=== PATIENT | female | born 1980 | race Caucasian/White ===

== ENCOUNTER 2024-11-24 11:50 | Inpatient (IN) | payer BC, SELFPAY ==
[2024-11-19 08:45] VITALS: BMI 27.9
[2024-11-19 09:10] LABS: % Basophils 0.4 % (0-2); % Eosinophils 0.7 % (0-6); % Immature Granulocytes 0.1 % (0-0.5); % Lymphocytes 22.1 % (20.5-51.1); % Monocytes 3.5 % (1.7-9.3); % Neutrophils 73.2 % (42.2-75.2); Absolute Eosinophils 0.1 10^3/uL (0-0.7); Absolute Lymphocytes 1.6 10^3/uL (1.2-3.4); Absolute Monocytes 0.3 10^3/uL (0.1-0.6); Absolute Neutrophils 5.4 10^3/uL (1.4-6.5); Hemoglobin 15.2 g/dL (12.0-16.0); Mean Corp Hgb Conc. 34.5 g/dL (33.0-37.0); Mean Corpuscular Hgb 31.1 pg (27.0-31.0); Mean Platelet Volume 8.9 fL (7.4-10.4); Nucleated Red Blood Cells % 0 %; Platelet Count 207 10^3/uL (130-400); Red Blood Cell Count 4.89 10^6/uL (4.20-5.40); Red Cell Dist. Width 12.4 % (11.5-14.5); White Blood Cell Count 7.4 10^3/uL (4.8-10.8)
[2024-11-19 09:16] LABS: INR 0.95; PT 13.2 Sec (11.4-14.6)
[2024-11-19 09:17] LABS: APTT 26.4 Sec (23.4-35.0)
[2024-11-19 09:44] LABS: Blood Urea Nitrogen 14 mg/dl (7-17); Calcium 9.9 mg/dl (8.4-10.2); Carbon Dioxide 26 mmol/L (22-30); Chloride 105 mmol/L (98-107); Estimated Creatinine Clearance 93 ml/min; Glucose 83 mg/dl (70-99); Potassium 4.1 mmol/L (3.5-5.1); Sodium 140 mmol/L (135-145); eGFR > 60.00
[2024-11-24] VITALS (29 sets, daily range): BP systolic 20–132; BP diastolic 53–81; BMI 29.9
[2024-11-24] MEDS: PERIDEX 0.12% ORAL RINSE 15 ML PO (12:30)
[2024-11-24] MEDS: BACTROBAN NASAL 1 GRAM NASAL (12:30)
[2024-11-24] MEDS: NSS 500 IV (12:31)
[2024-11-24 13:11] LABS: HCG, Urine Qualitative Screen Negative
[2024-11-24] MEDS: TRANSDERM-SCOP 1 PATCH TRANSDERM (13:41)
--- NOTE | 2024-11-24 14:23 | W.SUR.PREOP ---
Pre-Operative Surgical Note
-
I have examined this patient prior to the performance of the scheduled procedure.
The patient's condition is unchanged from the time of the current History and
Physical and the patient is able to undergo the scheduled procedure.
--- NOTE | 2024-11-24 14:38 | HP.FOC2 ---
Focused History & Physical
Chief Complaint
HPI:
Chief Complaint: Right upper extremity pain/numbness with concern for right thoracic outlet syndrome
HPI / Indication for Planned Procedure: 44-year-old female presents today for planned right first rib resection with Dr. Pedraza. Patient states her symptoms are stable and unchanged. She experiences right 4th and 5th digit numbness that she
believes is positional. She is experienced these symptoms for about 25 years. She presents at her baseline health today with no recent illnesses or traumas.
Relevant Past Medical History: Other (Platelet disorder during only, cervical rib)
Relevant Social History: Negative
Relevant Family History: Negative
Relevant Past Surgical History: Negative
Review of Systems
Review of Pertinent Systems: All Systems Negative
Medication
See Medication form for detailed medications: Yes
Medication List (including Herbals & OTC):
celecoxib 200 mg capsule 200 mg PO HS 11/17/24
norethindrone 1 mg-ethinyl estradiol 10 mcg (24)-iron 10 mcg(2) tablet (Lo Loestrin Fe) 1 tab PO HS 11/17/24
multivitamin with minerals-folic acid 200 mcg chewable tablet (Multivitamin Gummies) 2 tab PO DAILY 11/24/24
Medications Reviewed: Yes
Allergies and Reactions
Patient has Allergies: Yes
Noted Allergies and Reactions:
Allergy/AdvReac Type Severity Reaction Status Date / Time
pollen extracts Allergy seasonal Verified 11/24/24 12:22
allergies
Pertinent Physical Exam
All Other Systems: Negative
Head/Neck: Normal
Lungs: Normal
Heart: Normal
Abdomen: Normal
Extremities: Normal
Neurological: Normal
Diagnosis / Assessment
Thoracic outlet syndrome
Plan / Procedure
Patient wishes to proceed with planned right first rib resection with Dr. Pedraza today
Anesthesia/Sedation to be done by Anesthesia Provider: Yes
--- NOTE | 2024-11-24 16:53 | OR.RPT ---
Operative Report
Operative Report
Date of Operation: 11/24/2024
Pre Op Diagnosis: Neurogenic Thoracic Outlet Syndrome
Post Op Diagnosis: Neurogenic Thoracic Outlet Syndrome
Procedure:
1. Right transaxillary first rib resection with scalenectomy (16386)
2. Neurolysis of the brachial plexus at the time of first rib resection (85727)
Surgeon: Aries Pedraza III, MD
Assessment Coordinator: Leandro Haddad MD PGY1
Anesthesia: General
Complications: General
Estimated Blood Loss: 20 cc
History and Indications for Procedure: 44-year-old female with neurogenic thoracic outlet syndrome
Procedure in Detail: Linda Watson was correctly identified and placed supine on the operating table. After adequate induction of anesthesia she was positioned into a left lateral decubitus position (right side facing up) on a beanbag. All pressure
points were closely inspected and padded with the assistance of the nursing and anesthesia staff. The right arm, axilla and chest were prepped and draped in the usual sterile fashion. Preoperative antibiotics were administered. A timeout procedure
was performed with the nursing and anesthesia staff confirming the patients identity as well as the nature and laterality of the procedure.
At the base of the right axillary hairline a horizontal incision was made. Dissection was carried straight down to the chest wall using electrocautery. I then tunneled up towards the first rib using blunt dissection, staying right along the chest
wall. Using a combination of electrocautery and Kittner blunt dissection the subclavian vein, subclavian artery and anterior scalene muscle were exposed clearly over the superior margin of the first rib. The brachial plexus was visualized
posteriorly. Using a periosteal elevator and blunt finger dissection the inferior margin of the first rib was exposed. Blunt finger dissection was used to gently sweep the pleura away from the under surface of the first rib. The first rib was
exposed like this to a location posterior to the brachial plexus. A right angle clamp was used with electrocautery to divide the anterior scalene muscle at its insertion onto the first fib. The anterior and posterior cuts were made on the first rib
with the ribber and the intervening segment of rib was removed and sent to pathology. Additional bone margin was taken anteriorly and posteriorly on the first rib with a rongeur and the space was widely decompressed. The bone edges anteriorly
and posteriorly were softened with a rasp. The space was closely inspected and hemostasis was achieved. Neurolysis was performed around the exposed segment of brachial plexus using careful sharp scissor dissection following resection of the first
rib.
The space was filled with saline solution and no loss of volume was demonstrated. A Valsalva maneuver was performed with saline in the wound space and no air bubbles were visualized. The saline was then suctioned away. The wound was then irrigated
with saline. A #10 RAE drain was left high in the axilla and brought out through a separate stab incision at the skin.
The wound was then closed in multiple layers and a sterile dressing applied.
The patient tolerated the procedure well and was taken to the PACU in stable condition.
Attestation: I was present and responsible for the entire procedure
Signed:
Aries Pedraza III, MD
Vascular Surgery
[facility]
--- NOTE | 2024-11-24 17:00 | W.IMMPOSTOP ---
Surgical Immed Post Op Note
-
Primary Surgeon: Keila
Assisting Surgeon: Catie
Pre-op Diagnosis: nTOS
Post-op Diagnosis: nTOS
Procedure Performed: RIGHT transaxillary 1st rib resection, scalenectomy
Anesthesia Type: Gen
Specimen / Cultures: 1st rib
Estimated Blood Loss: 20 cc
Complications: None
Operative Findings: First rib resected. No pleural violation identified.
[2024-11-24] MEDS: DILAUDID 0.5 MG IV ×2 (17:22→17:41)
[2024-11-24 17:47] LABS: Blood Urea Nitrogen 11 mg/dl (7-17); Carbon Dioxide 22 mmol/L (22-30); Chloride 108 mmol/L (98-107); Estimated Creatinine Clearance 109 ml/min; Glucose 93 mg/dl (70-99); Potassium 4.2 mmol/L (3.5-5.1); Sodium 141 mmol/L (135-145); eGFR > 60.00
[2024-11-24 17:57] LABS: Hematocrit 43.2 % (37.0-47.0); Mean Corp Hgb Conc. 34.7 g/dL (33.0-37.0); Mean Corpuscular Hgb 31.4 pg (27.0-31.0); Mean Corpuscular Volume 90.4 fL (81.0-99.0); Mean Platelet Volume 9.3 fL (7.4-10.4); Platelet Count 202 10^3/uL (130-400); Red Blood Cell Count 4.78 10^6/uL (4.20-5.40); Red Cell Dist. Width 12.5 % (11.5-14.5); White Blood Cell Count 13.5 10^3/uL (4.8-10.8)
[2024-11-24] MEDS: NSS 1000 IV (17:58)
[2024-11-24] MEDS: DILAUDID PCA 30 IV (18:03)
[2024-11-24 18:04] LABS: INR 1.11; PT 14.7 Sec (11.4-14.6)
[2024-11-24 18:05] LABS: APTT 26.3 Sec (23.4-35.0)
[2024-11-24] MEDS: ZOFRAN 4 MG IV (18:50)
--- NOTE | 2024-11-24 19:30 | PTCARENOTE ---
Rec'd pt at 0835 via bed from PACU. Rec'd pt drowsy but easily arousable and alert and oriented. Speech is clear. Admits to 'soreness' at her R axillary incision but mostly is just c/o feeling very nauseated. PACU staff relates that it started
just as she was leaving the PACU to come up to ICU. Skin is pale wm and dry. Pt c/o feeling warm. Temp 97.6. R axillary incision with aquacell that is D+I. R upper lateral chest with RAE drain to bulb suction- dressing is D+I- draining sanginous
drainage. Respirs are shallow but non-labored on 2l nc with sats of 96%. BS are sl decreased at the bases, Monitor SR. VS as documented. + pulses. Good CMS checks to R arm- R upper extremity is pk wm and dry. No tenderness or edema. + pulses. Good
movement and no c/o pain down her arm or numbness or tingling. Nailbeds are pink with refill <2 seconds. Abd is soft with + -sl hypoactive BS. Pt with dry heaves and expectorated a small amt of clear mucous. Medicated at 1850 with Zofran 4 mg IV.
Voided about 30 mls of yellow urine on the bedpan and currently voided again 175 mls of urine. IV NSS infusing via LAC IV Site at 80 ml/hr along with [employer] IN[employer]CTOR Dilaudid 0.2 mg dose/10 minute lockout, max 1.2 mg/hr. No continuous rate. Call mcgovern and H[employer] IN[employer]CTOR
controller in reach. in to see pt and both updated on plan of care. Vascular checks completed with oncoming shift.
--- NOTE | 2024-11-24 20:00 | PTCARENOTE ---
Resumed care of pt this evening. Received pt on dilaudid LABEL MAKER. Pt is A&Ox3, can move all 4 extremities, and can make needs known. Pt is in NSR on tele monitor, has no edema, and palpable radial and pedal pulses bilaterally. Pt is on 2L of O2 satting
at 99% pulse ox. On auscultation pt lungs sound slightly diminished at the bases bilaterally, otherwise clear. Pt c/o nausea, has a round abdomen, and hypoactive BS. Pt voiding yellow colored urine. Pt's surgical dressing is C/D/I. RAE drain in place
draining serosanguineous drainage Bedrest maintained per order.
--- NOTE | 2024-11-24 21:00 | PTCARENOTE ---
Neurovascular checks performed on right upper extremity. Pt denies numbness/tingling. Pt able to move arm and wiggle fingers. Pt has adequate capillary refill. Pt denies pain at this time.
[2024-11-25] VITALS (21 sets, daily range): BP systolic 103–123; BP diastolic 49–77; PULSE 94; BMI 29.8
--- NOTE | 2024-11-25 00:15 | PTCARENOTE ---
Neurovascular checks unchanged. Pt resting comfortably at this time.
[2024-11-25] MEDS: NSS 1000 IV (05:53)
[2024-11-25 06:02] LABS: Hematocrit 40.1 % (37.0-47.0); Hemoglobin 14.2 g/dL (12.0-16.0); Mean Corp Hgb Conc. 35.4 g/dL (33.0-37.0); Mean Corpuscular Hgb 31.6 pg (27.0-31.0); Mean Corpuscular Volume 89.3 fL (81.0-99.0); Mean Platelet Volume 9.3 fL (7.4-10.4); Platelet Count 199 10^3/uL (130-400); Red Blood Cell Count 4.49 10^6/uL (4.20-5.40); Red Cell Dist. Width 12.3 % (11.5-14.5); White Blood Cell Count 8.3 10^3/uL (4.8-10.8)
[2024-11-25 06:10] LABS: APTT 25.1 Sec (23.4-35.0); INR 1.04; PT 13.9 Sec (11.4-14.6)
[2024-11-25 06:27] LABS: Blood Urea Nitrogen 11 mg/dl (7-17); Calcium 8.8 mg/dl (8.4-10.2); Carbon Dioxide 19 mmol/L (22-30); Chloride 110 mmol/L (98-107); Estimated Creatinine Clearance 104 ml/min; Glucose 101 mg/dl (70-99); Potassium 4.4 mmol/L (3.5-5.1); Sodium 139 mmol/L (135-145); eGFR > 60.00
--- NOTE | 2024-11-25 07:29 | CON.INTV ---
Consultation
Consultation Request
Date/Time Consultation Requested: 11/24/2024
Date/Time Consultation Performed: 11/25/2024
Requesting Provider: Elvira Zaidi
Performing Provider: Skip Gracia
Reason for Consultation: Thoracic surgery
Medical History
-
Chief Complaint: Arm numbness
History of Present Illness:
Patient is a very pleasant 44-year-old female with longstanding right arm numbness felt to be positional. She was evaluated by vascular surgery services outpatient and was diagnosed with thoracic outlet syndrome. She was admitted to the hospital
for an elective right first rib resection with Dr. Pedraza. Postsurgery, she is being admitted to the ICU for close monitoring.
Relevant Past Medical History: Other (Platelet disorder during only, cervical rib)
Relevant Social History: Negative
Relevant Family History: Negative
Relevant Past Surgical History: Negative
Allergies / Home Medications
Allergies
Allergy/AdvReac Type Severity Reaction Status Date / Time
pollen extracts Allergy seasonal Verified 11/24/24 12:22
allergies
Home Medications
�Medication �Instructions �Recorded �Confirmed �Last Taken �Type
celecoxib 200 mg capsule 200 mg PO HS 11/17/24 11/24/24 11/13/24 20:00 History
norethindrone 1 mg-ethinyl 1 tab PO HS 11/17/24 11/24/24 11/23/24 22:00 History
estradiol 10 mcg (24)-iron 10
mcg(2) tablet (Lo Loestrin Fe)
multivitamin with minerals-folic 2 tab PO DAILY 11/24/24 11/24/24 Unknown History
acid 200 mcg chewable tablet
(Multivitamin Gummies)
Review of Systems
-
Hematologic/Lymphatic: Other (All 14 systems reviewed and negative except as stated above in the history of present illness.)
Vitals / Labs / Diagnostic Testing
Vital Signs
Temp Pulse Resp BP Pulse Ox
97.6 F 87 13 131/81 97
11/24/24 12:05 11/24/24 12:30 11/24/24 12:30 11/24/24 12:20 11/24/24 12:30
Diagnostic Testing:
Physical Exam
-
HEENT: Normocephalic
Cardiovascular: S1/S2
Respiratory: Clear and Non-Labored Respirations
GI: Soft and Non Distended
Neurology: Awake, Alert and Oriented
Skin: Warm
General: Comfortable
Assessment
-
#. Thoracic outlet syndrome with right upper extremity positional numbness, s/p Right transaxillary first rib resection with scalenectomy & Neurolysis of the brachial plexus at the time of first rib resection by vascular surgery service, POD #1
Continue observation following procedure
Follow neurovascular checks per protocol
Pain control
Follow BP monitoring and parameters as set by primary team
No significant cardiac history noted
Monitor on telemetry
Pain control per protocol
RASS goal 0
No prior history of pulmonary disease, no h/o smoking
CXR 11/19/2024 unremarkable
No prior PFTs for review
Encouraged IS post operative
Diet advancement per protocol
Aspiration precautions
Creat at baseline, follow UO
Critical I/Os
Void trials
Replete electrolytes as needed
No signs/symptoms suspicious for infectious etiology at this time
Will observe off antibiotics for now
Follow temperatures/CBC
Hb and platelets postoperatively stable. h/o Thrombocytopenia during , self limiting.
DVT prophylaxis s.c. Heparin
Encouraged OOB/PT/OT/ambulation once cleared by surgical team
We will follow
Total time spent on this consultation/encounter __59__ minutes which includes review of history, physical exam, medications, laboratory data, personal review of imaging, extensive review of outpatient records, discussion with care team and
respiratory therapy.
[2024-11-25] MEDS: THERAGRAN PO (07:44)
[2024-11-25] MEDS: HEPARIN 5000 UNITS SC ×3 (07:45→23:29)
--- NOTE | 2024-11-25 07:45 | PTCARENOTE ---
Received patient from night clerk auditor. patient is AAOx4, moves all extremities, Neurovascular status WNL and unchanged from prior shift. patient is 100% on 2L oxygen, Incentive spirometry at bedside. Patient is sinus rhythm on monitor. Diet has been
upgraded to regular from clears. she is voiding on bedpan. Post op dressings clean dry intact. Patient has dilaudid [employer] PROJECTS MANAGER, but has only usd it 4 times since last night. Has minimal pain but has not mobilized much. Will address pain management
with physician but may transition off SPECIAL PROJECTS MANAGER. Plan to get patient OOB. Pain is at 3 out of 10. Will review orders, call mcgovern within reach.
--- NOTE | 2024-11-25 08:25 | W.PN.VS ---
Today's Communication / Plan
-
See below.
Assessment/Plan
-
Assessment: 44-year-old female POD #1 Right transaxillary first rib resection with scalenectomy and neurolysis of the brachial plexus at the time of first rib resection
Plan:
Will discontinue PRINT BUYER and transition to p.o. pain medication
OOB to chair with progression ambulation as tolerated
Physical therapy
Discontinue IV fluids
Possible downgrade to telemetry later this afternoon depending on patient progress
Encourage incentive spirometry
Subjective Data
-
Date of Service: November 25, 2024
Patient seen and examined at bedside, offers no complaints. Reports adequate postoperative pain management, additional endorses that she has intermittently used PRINT BUYER and is willing to transition to p.o. pain medication. Denies nausea, vomiting,
fever, and chills.
Objective Data
-
Vital Signs
Temp Pulse Resp BP Pulse Ox
98.4 F 95 18 111/74 97
11/25/24 08:22 11/25/24 05:45 11/25/24 05:45 11/25/24 05:00 11/25/24 05:45
Intake and Output
11/24/24 11/25/24 11/26/24
06:59 06:59 06:59
Intake Total 1080 / 1160 160 / 160
Output Total 813 / 813
Balance 267 / 347 160 / 160
Intake:
IV fluids (Total) 1080 / 1160 160 / 160
Normosol 200 / 200
Nss 1,000 ml @ 80 mls/hr IV . 880 / 960 160 / 160
[id number] LUISA Rx#:[id number]
Output:
Drain Output (Total)
Right [place]
Urine, Voided 735 / 735
Other:
Number of approximated LARGE 1
amounts of urine
Lab Results
11/25/24 05:44
11/25/24 05:44
Calcium 8.8 mg/dl (8.4-10.2) 11/25/24 05:44
Physical Exam
-
No apparent distress, resting in bed comfortably
No tachycardia
No dyspnea
Right axilla dressing CDI, RAE with serosanguineous output, right hand warm, palpable +2 radial pulse
[2024-11-25] MEDS: ROXICODONE 5 MG PO (09:36)
[2024-11-25] MEDS: TYLENOL 650 MG PO ×3 (09:36→19:46)
[2024-11-25] MEDS: NON-FORMULARY ITEM 1 TABLET PO ×2 (12:04→19:48)
--- NOTE | 2024-11-25 14:25 | CM ---
CM following re: discharge planning.
Reviewed pt's chart, met with pt and pt's at bedside.
Pt is a 44 year old female, admitted with primary dx of POD #1 Right transaxillary first rib resection with scalenectomy and neurolysis of the brachial plexus at the time of first rib resection.
Pt reports she lives with and 2 children in a 2SH, 2 steps to enter. 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
PCP: Angel Pham
Pharmacy: [facility]
D/C plan: home with anticipated no needs. to transport at discharge.
CM will follow with discharge plan updates as hospitalization progresses
--- NOTE | 2024-11-25 15:33 | PTCARENOTE ---
Patient transferred to . Report given to VERONICA Rubi. Ej drain emptied 35ml.
--- NOTE | 2024-11-25 15:46 | PTCARENOTE ---
Pt arrived to 2S via wheelchair, ambulated to bed with a standby assist, gait steady. R axilla DSG C/D/I, R RAE drain maintained, serosanguineous drainage noted in the tubing. RUE neurovascular assessment WDL. PRN tylenol provided per pt request. Bed
locked and in the lowest position, safety maintained. Oriented to room and call mcgovern, resting between care.
[2024-11-26 03:14] VITALS: BP 113/71
[2024-11-26 07:32] LABS: Hematocrit 37.8 % (37.0-47.0); Hemoglobin 13.1 g/dL (12.0-16.0); Mean Corp Hgb Conc. 34.7 g/dL (33.0-37.0); Mean Corpuscular Hgb 31.6 pg (27.0-31.0); Mean Corpuscular Volume 91.3 fL (81.0-99.0); Platelet Count 177 10^3/uL (130-400); Red Blood Cell Count 4.14 10^6/uL (4.20-5.40); White Blood Cell Count 9.2 10^3/uL (4.8-10.8)
[2024-11-26 08:00] VITALS: BP 128/75
[2024-11-26] MEDS: TYLENOL 650 MG PO (08:18)
[2024-11-26] MEDS: HEPARIN 5000 UNITS SC (08:20)
[2024-11-26] MEDS: THERAGRAN 2 TABLET PO (08:20)
[2024-11-26 08:34] LABS: Blood Urea Nitrogen 12 mg/dl (7-17); Calcium 8.7 mg/dl (8.4-10.2); Carbon Dioxide 22 mmol/L (22-30); Chloride 112 mmol/L (98-107); Estimated Creatinine Clearance 89 ml/min; Glucose 94 mg/dl (70-99); Sodium 140 mmol/L (135-145); eGFR > 60.00
[2024-11-26 12:20] VITALS: BP 121/79; PULSE 79; O2SAT 98
--- NOTE | 2024-11-26 12:35 | PTOTSP ---
Observed pt ambulating independently without an assistive device with steady gait. D/w OT and agree no PT needed. Will sign off.
[2024-11-26 12:36] VITALS: BP 118/72
[2024-11-26] MEDS: ZOFRAN 4 MG IV (12:58)
[2024-11-26] MEDS: MORPHINE SULFATE 1 MG IV (12:58)
--- NOTE | 2024-11-26 13:27 | W.PN.VS ---
Today's Communication / Plan
-
Patient seen and examined at bedside with Dr. Santhosh Gomez, below plan reviewed with attending.
Assessment/Plan
-
Assessment: 44-year-old female POD #2 Right transaxillary first rib resection with scalenectomy and neurolysis of the brachial plexus at the time of first rib resection
Plan:
RAE drain removed
Will obtain 1 hour post removal chest x-ray, if without changes likely DC late this afternoon
Physical therapy
Encourage incentive spirometry
Subjective Data
-
Date of Service: November 26, 2024
Patient seen and examined at bedside, offers no complaints. Reports well-managed postoperative pain.
Objective Data
-
Vital Signs
Temp Pulse Resp BP Pulse Ox
98.3 F 82 16 118/72 93
11/26/24 12:36 11/26/24 12:36 11/26/24 12:36 11/26/24 12:36 11/26/24 12:36
Intake and Output
11/25/24 11/26/24 11/27/24
06:59 06:59 06:59
Intake Total 1080 / 1160 1330 / 1330
Output Total 813 / 813 5 /
Balance 267 / 347 1270 / 1270 -5 / -5
Intake:
Oral fluids 1170 / 1170
IV fluids (Total) 1080 / 1160 160 / 160
Normosol 200 / 200
Nss 1,000 ml @ 80 mls/hr IV . 880 / 960 160 / 160
[id number] LUISA Rx#:[id number]
Output:
Drain Output (Total) 5 / 5
Right [facility] 5 /
Urine, Voided 735 / 735
Other:
Number of approximated MODERATE 1
amounts of urine
Number of approximated LARGE 1
amounts of urine
Lab Results
11/26/24 07:10
11/26/24 07:10
Calcium 8.7 mg/dl (8.4-10.2) 11/26/24 07:10
Physical Exam
-
No apparent distress, resting in bed comfortably
No tachycardia
No dyspnea
Right axilla dressing CDI, RAE with serosanguineous output, right hand warm, palpable +2 radial pulse
--- NOTE | 2024-11-26 14:54 | CM ---
CM reviewed chart, patient seen bedside. Patient reports no needs/concerns to CM at this time, reports she will have transportation home. CM will continue to follow for all discharge planning needs.
Plan; home no needs.
--- NOTE | 2024-11-26 16:18 | W.PN.UPDATE ---
Update Note
Progress Note Update
Repeat chest x-ray after removal of drain with no significant changes, patient cleared for discharge to home.
--- NOTE | 2024-11-26 16:19 | W.[place]-PDMP ---
[place]PD[place]
-
Checked the [place]- Prescription Drug Monitoring Program website, no red flags identified; safe to proceed with prescription.
--- NOTE | 2024-11-26 16:20 | W.DS.TRANS ---
DC Summary - Paper Counter
-
Discharge Instructions:
Discharge Diagnosis/Procedures right first rib resection
Diet As tolerated
Activity No strenuous activity
Driving Restrictions Not until seen by your Dr
Bathing Restrictions OK to Shower
Other Services PT
Instructions:
Stand-Alone Forms: DC Instr - Vascular OR
Changes to Home Medications: Yes
Discharge Medications:
DC Medications w/original date entered in Turned [employer]
celecoxib 200 mg capsule 200 mg PO HS Pain 11/17/24
norethindrone 1 mg-ethinyl estradiol 10 mcg (24)-iron 10 mcg(2) tablet (Lo Loestrin Fe) 1 tab PO HS Hormonal Agent 11/17/24
multivitamin with minerals-folic acid 200 mcg chewable tablet (Multivitamin Gummies) 2 tab PO DAILY Supplement 11/24/24
oxycodone 5 mg tablet 5 mg PO Q4HPRN PRN severe pain #12 tabs 11/26/24
Home Medication Changes
Held:
celecoxib 200 mg capsule 200 mg PO HS Pain 11/17/24
Started:
oxycodone 5 mg tablet 5 mg PO Q4HPRN PRN severe pain #12 tabs 11/26/24
Pending Results: No
[2024-11-26 16:24] VITALS: BP 135/79
== END 2024-11-26 16:55 | disposition home or self-care (01) | DRG 30 ==
LOC: 2 SOUTH 11:50
PROVIDERS: Nurse Practitioner; Nurse Practitioner Acute Care; ADMITTING PHYSICIAN Surgery Vascular Surgery; CONSULT PHYSICIAN Internal Medicine; PRIMARYCARE PHYSICIAN Family Medicine
PROC: 0PT10ZZ Resection of 1 to 2 Ribs, Open Approach (ICD-10-PCS; 2024-11-24)
PROC: 01N30ZZ Release Brachial Plexus, Open Approach (ICD-10-PCS; 2024-11-24)
DX: G54.0 Brachial plexus disorders (principal)
CPT/HCPCS: 88304; 88311; 21615; 36415; 71045; 71046; 80048; 81025; 85025; 85027; 85610; 85730; 86850; 86900; 86901; 93005; 97116; 97162; 97166

== ENCOUNTER → 2024-12-10 11:54 | Outpatient (REF) | payer BC, SELFPAY | LOC: RAD 11:54 | PROVIDERS: ATTENDING PHYSICIAN Physician Assistant; FAMILY PHYSICIAN Family Medicine | DX: G54.0 Brachial plexus disorders (principal); R07.9 Chest pain, unspecified; Z09 Encounter for follow-up examination after completed treatment for conditions other than malignant neoplasm | CPT/HCPCS: 71046 ==